=== PATIENT | female | born 1980 | race Caucasian/White ===

== ENCOUNTER 2016-08-02 17:33 | Emergency (ER) | payer OTHER ==
[2016-08-02 18:40] VITALS: BP 123/76
--- NOTE | 2016-08-02 19:22 | UC ---
Throat Pain/Nasal Alvaro HPI - HPI Summary HPI Summary: complaint of nasal congestion and cough that started today ears feel full cough is productive with some yellow phlegm denies fever and chills denies N/V/D has had migraine for the last 2 days with occasional neck pain was taking ibuporofen with relief but ran out of medication and migraine returned being followed by Dr Mcclure has apt for followup in 4 days denies dizziness, photophobia, N/V - History of Current Complaint Chief Complaint: UCGeneralIllness Stated Complaint: FEVER, CHEST CONGESTION Time Seen by Provider: 08/02/16 19:07 Hx Obtained From: Patient Hx Last Menstrual Period: 08/02/16 - Allergies/Home Medications Allergies/Adverse Reactions: Allergies Allergy/AdvReac Type Severity Reaction Status Date / Time Bee Venom Allergy Severe Anaphylatic Verified 08/02/16 18:40 Shock Penicillins Allergy Severe Swelling Verified 08/02/16 18:40 Of Face,Lips,& Throat Aspirin Allergy Intermediate Rash Verified 08/02/16 18:40 Flu Virus Vaccine Allergy Intermediate Hives Verified 08/02/16 18:40 PMH/Surg Hx/FS Hx/Imm Hx Previously Healthy: Yes Endocrine History Of: Denies: Diabetes, Thyroid Disease, Hyperthyroidism, Hypothyroidism, Dyslipidemia Cardiovascular History Of: Denies: Cardiac Disorders, Hypertension, Pacemaker/ICD, Myocardial Infarction , Congestive Heart Failure, Atrial Fibrillation, Deep Vein Thrombosis, Bleeding Disorders Respiratory History Of: Reports: Asthma - Uses albuterol when needed. Denies: COPD, Bronchitis, Pneumonia, Pulmonary Embolism GI/ History Of: Denies: Gastroesophageal Reflux, Ulcer, Gastrointestinal Bleed, Gall Bladder Disease, Kidney Stones, Diverticulitis, Renal Disease, Urosepsis Neurological History Of: Reports: Migraine Denies: TIA, CVA, Dementia, Seizures Psychological History Of: Reports: Depression Denies: Anxiety, Bipolar Disorder, Schizophrenia, Post Traumatic Stress Disorder Cancer History Of: Reports: Cervical Cancer - She is seeing MOTOR ANALYST Denies: Lung Cancer, Colorectal Cancer, Breast Cancer, Prostate Cancer Other History Of: Negative For: HIV, Hepatitis B, Hepatitis C, Anticoagulant Therapy - Surgical History Surgical History: Yes Surgery Procedure, Year, and Place: tubal. C-SECT - Family History Known Family History: Positive: None, Cardiac Disease, Hypertension, Diabetes Negative: Renal Disease Family History: NON CONTRIBUTORY - Social History Lives: With Family Alcohol Use: None Substance Use Type: None Smoking Status (MU): Former Smoker Type: Cigarettes Amount Used/How Often: 4-5 cigs per day Have You Smoked in the Last Year: Yes When Did the Patient Quit Smoking/Using Tobacco: 3 months Household Exposure Type: Cigarettes - Immunization History Most Recent Influenza Vaccination: none Hx Tetanus, Diphtheria Vaccination: Yes Vaccination Up to Date: Yes Review of Systems Constitutional: Negative Skin: Negative Eyes: Negative ENT: Ear Ache, Nasal Discharge Respiratory: Cough Cardiovascular: Negative Gastrointestinal: Negative Genitourinary: Negative Motor: Negative Neurovascular: Negative Musculoskeletal: Negative Neurological: Negative Psychological: Negative All Other Systems Reviewed And Are Negative: Yes Physical Exam Triage Information Reviewed: Yes Appearance: No Pain Distress, Well-Nourished, Obese Vital Signs: Initial Vital Signs Temp 98.1 F 08/02/16 18:36 Pulse 94 08/02/16 18:36 Resp 17 08/02/16 18:36 BP 123/76 08/02/16 18:36 Pulse Ox 100 08/02/16 18:36 Vital Signs Reviewed: Yes Eyes: Positive: Conjunctiva Clear ENT: Positive: Pharynx normal, Nasal congestion, TMs normal, Other: - PERRL Neck: Positive: Supple, Nontender, No Lymphadenopathy. Negative: Nuchal Rigidity Respiratory: Positive: Lungs clear, Normal breath sounds, No respiratory distress Cardiovascular: Positive: RRR, No Murmur, Pulses Normal Abdomen Description: Positive: Nontender, Soft Bowel Sounds: Positive: Present Musculoskeletal: Positive: No Edema Neurological: Positive: Alert Psychological Exam: Normal Skin Exam: Normal Throat Pain/Nasal Course/Dx - Differential Dx/Diagnosis Differential Diagnosis/HQI/PQRI: Otitis Media, Pharyngitis, Sinusitis, URI Provider Diagnoses: URI, migraine Discharge - Discharge Plan Condition: Stable Disposition: HOME Prescriptions: Benzonatate CAP* [Tessalon CAP*] 100 mg PO TID PRN #30 cap PRN Reason: Cough Ibuprofen TAB* [Motrin TAB* 800 MG] 800 mg PO TID #30 tab Patient Education Materials: Migraine Headache (ED), Upper Respiratory Infection (ED) Referrals: Frida De Santiago MD [Primary Care Provider] - Additional Instructions: Increase fluids and rest Take acetaminophen or ibuprofen for fever and headache Please review your discharge instructions. keep appt with primary care provider for further evaluation of your migraine If your symptoms do not improve please call your primary care provider or return to urgent care
== END 2016-08-02 19:40 | disposition home or self-care (01) ==
LOC: UCCORT 17:33
DX: J06.9 Acute upper respiratory infection, unspecified (principal); G43.909 Migraine, unspecified, not intractable, without status migrainosus; J45.909 Unspecified asthma, uncomplicated; C53.9 Malignant neoplasm of cervix uteri, unspecified; E66.9 Obesity, unspecified; Z87.891 Personal history of nicotine dependence; Z88.0 Allergy status to penicillin; Z88.6 Allergy status to analgesic agent; Z88.8 Allergy status to other drugs, medicaments and biological substances
CPT/HCPCS: 99212; G0463

== ENCOUNTER 2017-03-26 20:59 | Emergency (ER) | payer OTHER ==
[2017-03-26 21:11] VITALS: BP 125/74
--- NOTE | 2017-03-26 21:33 | UC ---
HPI Wound/Suture Re-check - HPI Summary HPI Summary: wound check s/p gallbladder surgery 5 days ago concern about one of the incisions + pain , mild redness , no discharge no n/v/d/c no fever, no chills , no abdominal pain - History Of Current Complaint Chief Complaint: UCSkin Stated Complaint: POST OP SKIN COMPLAINT Time Seen by Provider: 03/26/17 21:01 Hx Obtained From: Patient Hx Last Menstrual Period: 03/09/17 Onset/Duration: Gradual Onset, Lasting Days - 5, Still Present Severity: Mild - Allergies/Home Medications Allergies/Adverse Reactions: Allergies Allergy/AdvReac Type Severity Reaction Status Date / Time Bee Venom Allergy Severe Anaphylatic Verified 03/26/17 21:11 Shock Penicillins Allergy Severe Swelling Verified 03/26/17 21:11 Of Face,Lips,& Throat Aspirin Allergy Intermediate Rash Verified 03/26/17 21:11 Home Medications: Home Medications oxyCODONE TAB* [Roxycodone TAB 5 mg*] 10 mg PO Q4H PRN 03/26/17 [History Confirmed 03/26/17] PMH/Surg Hx/FS Hx/Imm Hx GI/ History: Gall Bladder Disease Other History Of: Negative For: HIV, Hepatitis B, Hepatitis C, Anticoagulant Therapy - Surgical History Surgical History: Yes Surgery Procedure, Year, and Place: tubal. C-SECT. gallbladder removal 03/2017 - Family History Known Family History: Positive: None, Cardiac Disease, Hypertension, Diabetes Negative: Renal Disease Family History: NON CONTRIBUTORY - Social History Alcohol Use: None Substance Use Type: None Smoking Status (MU): Former Smoker Type: Cigarettes Amount Used/How Often: 4-5 cigs per day Have You Smoked in the Last Year: Yes When Did the Patient Quit Smoking/Using Tobacco: 3 months Household Exposure Type: Cigarettes - Immunization History Most Recent Influenza Vaccination: none Hx Tetanus, Diphtheria Vaccination: Yes Vaccination Up to Date: Yes Review of Systems Constitutional: Negative Skin: Negative Eyes: Negative ENT: Negative Respiratory: Negative Cardiovascular: Negative Is Patient Immunocompromised?: No All Other Systems Reviewed And Are Negative: Yes Physical Exam Triage Information Reviewed: Yes Appearance: Well-Appearing, Well-Nourished, Obese Vital Signs: Initial Vital Signs Temp 97.9 F 03/26/17 21:05 Pulse 91 03/26/17 21:05 Resp 16 03/26/17 21:05 BP 125/74 03/26/17 21:05 Pulse Ox 100 03/26/17 21:05 Vital Signs Reviewed: Yes Eyes: Positive: Conjunctiva Clear ENT: Positive: Normal ENT inspection, Hearing grossly normal, Pharynx normal Dental Exam: Normal Neck exam: Normal Neck: Positive: Supple, Nontender, No Lymphadenopathy Respiratory: Positive: Chest non-tender, Lungs clear, Normal breath sounds Cardiovascular: Positive: RRR, No Murmur, Pulses Normal Abdominal Exam: Normal Abdomen Description: Positive: Soft, Other: - multiple surgical incisions , no erythema, no swelling, no discharge, no tenderness. Negative: CVA Tenderness (R ), CVA Tenderness (L), Distended, Guarding Bowel Sounds: Positive: Present Course/Dx - Differential Dx - Laceration/Wound Provider Diagnoses: wound check Discharge - Discharge Plan Condition: Stable Disposition: HOME Patient Education Materials: Acute Wound Care (ED) Referrals: Frida De Santiago MD [Primary Care Provider] - If Needed
== END 2017-03-26 21:38 | disposition home or self-care (01) ==
LOC: UCCORT 20:59
DX: Z09 Encounter for follow-up examination after completed treatment for conditions other than malignant neoplasm (principal); Z90.49 Acquired absence of other specified parts of digestive tract; E66.9 Obesity, unspecified; Z88.0 Allergy status to penicillin; Z88.6 Allergy status to analgesic agent; Z91.030 Bee allergy status; Z87.891 Personal history of nicotine dependence
CPT/HCPCS: 99211; G0463

== ENCOUNTER 2017-07-22 18:44 | Emergency (ER) | payer OTHER ==
[2017-07-22] MEDS ORDERED: Clindamycin CAP* 150 MG PO ONE (22:06)
[2017-07-22] MEDS ORDERED: Acetaminophen TAB* 325 MG PO ONE (22:07)
[2017-07-22] MEDS ORDERED: Lidocaine 2% VISCOUS* 15 ML UDC SWISH SPIT ONE (22:08)
[2017-07-22] MEDS ORDERED: predniSONE TAB* 20 MG PO ONE ×2 (22:08→22:18)
--- NOTE | 2017-07-22 22:34 | UC ---
[facility] Dental HPI - HPI Summary HPI Summary: 37 y/o female presents to the urgent care c/o RT ear pain and RT lower jaw pain with swelling since this morning. Pt reports she has a fracture molars in the RT upper and lower jaw. Pain is sharp, constant 8/10 with mild fever and MENDOZA. Pt has taken Ibuprofen adn tylenol Po to alleviate pain. Last dose of ibuprofen at 1700pm. Pt denies cough, sOB, trimus, chest pain, N/V/d, abdominal pain - History of Current Complaint Chief Complaint: UCEar Stated Complaint: RIGHT EAR PAIN/LUMP IN JAW Time Seen by Provider: 07/22/17 21:55 Hx Obtained From: Patient Hx Last Menstrual Period: 06/16/17 Onset/Duration: Sudden Onset, Lasting Hours - this morning, Still Present Severity: Severe Pain Intensity: 8 Pain Scale Used: 0-10 Numeric Aggravating Factor(s): Chewing Alleviating Factor(s): OTC Meds - Allergies/Home Medications Allergies/Adverse Reactions: Allergies Allergy/AdvReac Type Severity Reaction Status Date / Time Bee Venom Allergy Severe Anaphylatic Verified 07/22/17 20:19 Shock Penicillins Allergy Severe Swelling Verified 07/22/17 20:19 Of Face,Lips,& Throat Aspirin Allergy Intermediate Rash Verified 07/22/17 20:19 Home Medications: Home Medications Prazosin HCl [Minipress] 2 mg PO BEDTIME 07/22/17 [History Confirmed 07/22/17] Venlafaxine HCl [Venlafaxine HCl ER] 37.5 mg PO DAILY 07/22/17 [History Confirmed 07/22/17] hydrOXYzine HCL TAB* [Atarax 25 MG TAB*] 25 mg PO BID PRN 07/22/17 [History Confirmed 07/22/17] PMH/Surg Hx/FS Hx/Imm Hx Previously Healthy: Yes Cancer History: Cervical Cancer Other History Of: Negative For: HIV, Hepatitis B, Hepatitis C, Anticoagulant Therapy - Surgical History Surgical History: Yes Surgery Procedure, Year, and Place: tubal. C-SECT X 1. gallbladder removal 2016. NOVPERFECTO. LEEP - Family History Known Family History: Positive: Cardiac Disease, Hypertension, Diabetes Negative: Renal Disease - Social History Occupation: Employed Full-time Lives: With Family Alcohol Use: Rare Substance Use Type: None Smoking Status (MU): Former Smoker Type: Cigarettes Amount Used/How Often: 4-5 cigs per day Have You Smoked in the Last Year: Yes When Did the Patient Quit Smoking/Using Tobacco: 3 months Household Exposure Type: Cigarettes - Immunization History Most Recent Influenza Vaccination: none Hx Tetanus, Diphtheria Vaccination: Yes Vaccination Up to Date: Yes Review of Systems Constitutional: Fever Skin: Negative Eyes: Negative ENT: Dental Pain, Ear Ache - RT ear pain Respiratory: Negative Cardiovascular: Negative Gastrointestinal: Negative Genitourinary: Negative Motor: Negative Neurovascular: Negative Musculoskeletal: Negative Neurological: Headache Psychological: Negative Is Patient Immunocompromised?: No All Other Systems Reviewed And Are Negative: Yes Physical Exam Triage Information Reviewed: Yes Vital Signs: Initial Vital Signs Temp 100.2 F 07/22/17 20:10 Pulse 100 07/22/17 20:10 Resp 16 07/22/17 20:10 BP 142/90 07/22/17 20:10 Pulse Ox 100 07/22/17 20:10 - Additional Comments Vitals: reviewed General: Well-Appearing, moderate Pain Distress, Well-Nourished female Vital Signs Reviewed: Yes Eyes: Positive: Conjunctiva Clear - PERRLA, EOMI, ENT: Positive: Normal ENT inspection, Hearing grossly normal, Pharynx normal, TMs normal - B/L external ear canals clear,. Negative: Tonsillar swelling, Tonsillar exudate, Trismus Dental: Positive: Gross Decay/Caries @ - molars #3 and 30, Abscess @ molar #3- gingival swelling and erythema, tender to percussion. involves tissue surrounding the molar#3., Cervical Lymphadenopathy - anterior- broken, or decayed teeth, gingival swelling and erythema, tender to percussion. Periodontal: involves tissue surrounding the teeth. Neck: Positive: Supple Respiratory: Positive: Chest non-tender, Lungs clear, Normal breath sounds, No respiratory distress Cardiovascular: Positive: RRR, No Murmur, Pulses Normal, Brisk Capillary Refill Abdomen Description: Positive: Nontender, No Organomegaly, Soft. Negative: CVA Tenderness (R), CVA Tenderness (L) Bowel Sounds: Positive: Present Musculoskeletal: Positive: Strength Intact, ROM Intact, No Edema Neurological Exam: Normal Psychological Exam: Normal Skin Exam: Normal Dental Complaint Course/Dx - Course Course Of Treatment: 37 y/o female presents to the urgent care c/o RT ear pain and RT lower jaw pain with swelling since this morning. Pt reports she has a fracture molars in the RT upper and lower jaw. Pain is sharp, constant 8/10 with mild fever and MENDOZA. Pt has taken Ibuprofen adn tylenol Po to alleviate pain. Last dose of ibuprofen at 1700pm. Pt denies cough, SOB, trimus, chest pain , N/V/D, abdominal pain. Hx obtained. Pt is febrile with dental abscess around molar #3 in the upper jaw on examination, no trismus or TMJ tenderness. Pt decline Toradol inj. Pt PCN alelrgic. Pt given viscous Lidocaine, Tylenol PO, Clindamycin loading dose at the clinic to alleviate symptoms. Pt dispense to take home first dose of prednisone to decrease swelling. Pt Rx Prednisone taper dose, Clindamycin PO and tylenol PO.Pt's BP is elevated today advised to decrease salt in diet, monitor BP and f/u with PCP for further management. Pt strongly advised to f/u with her Dentist as soon as possible further evaluation and treatment. Pt understood and agreed with plan of care. Left the clinic ambulating. - Differential Dx/Diagnosis Differential Diagnosis/Dx: Dental Abscess, Dental Caries, Fractured Tooth, Peridontic Disease, Peritonsillar Abcess, Pharyngitis, Tonsillitis Provider Diagnoses: 1- Dental abscess. 2-Multiple fractured molars. 3- elevated BP w/o Hx of HTN Discharge - Discharge Plan Condition: Stable Disposition: HOME Prescriptions: Acetaminophen TAB* [Tylenol TAB*] 650 mg PO Q6H PRN #30 tab PRN Reason: Pain Clindamycin Cap(NF) [Clindamycin Cap 300 mg Cap(NF)] 300 mg PO Q6H #28 cap predniSONE TAB* [Deltasone TAB*] 20 mg PO DAILY #8 tab Patient Education Materials: Dental Abscess (ED), Low Sodium Diet (ED), Toothache (ED) Referrals: Frida De Santiago MD [Primary Care Provider] - 2 Days Additional Instructions: 1-Please take full course of antibiotic to avoid resistance. 2- Take Tylenol q4-6hrs as instructed after meals to alleviate pain and swelling. 3- Take Prednisone PO as directed for swelling. Take 60mgPO tonight and the rest starting tomorrow 4- F/u with your Dentist or Dental List provided as soon as possible for further treatment. 5- If symptoms do not improve or worsen please return to the urgent care or f/u with your PCP for further evaluation and treatment 6- Your BP is elevated today. please decrease salt in your diet, monitor BP and if it continues to be elevated please f/u with your PCP for further management
[2017-07-22 22:37] VITALS: BP 143/98
== END 2017-07-22 22:41 | disposition home or self-care (01) ==
LOC: UCCORT 18:44
DX: K04.7 Periapical abscess without sinus (principal); S02.5XXA Fracture of tooth (traumatic), initial encounter for closed fracture; X58.XXXA Exposure to other specified factors, initial encounter; Y93.9 Activity, unspecified; Y92.9 Unspecified place or not applicable; R03.0 Elevated blood-pressure reading, without diagnosis of hypertension; Z87.891 Personal history of nicotine dependence
CPT/HCPCS: 99213; A9270-GY; G0463; J7512

== ENCOUNTER 2018-01-30 21:00 | Emergency (ER) | payer OTHER ==
[2018-01-30 21:22] VITALS: BP 121/77
[2018-01-30] MEDS ORDERED: Cyclobenzaprine TAB* 10 MG PO ONE (21:33)
--- NOTE | 2018-01-30 21:33 | UC ---
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 She has had no injury - History of Current Complaint Chief Complaint: UCBackPain Stated Complaint: BACK/HIP PAIN Time Seen by Provider: 01/30/18 21:14 Hx Obtained From: Patient Hx Last Menstrual Period: pt states no menses since having leep procedure 06/23 ?: No Onset/Duration: Gradual Onset, Lasting Days - 7, Still Present Timing: Constant Pain Intensity: 8 Pain Scale Used: 0-10 Numeric Back Pain: Is Discrete @ - right lower back radiating in to hip Character: Aching, Spasmodic, Stiffness Aggravating Factor(s): Movement Alleviating Factor(s): Position Associated Signs And Symptoms: Positive: Negative - Allergies/Home Medications Allergies/Adverse Reactions: Allergies Allergy/AdvReac Type Severity Reaction Status Date / Time MS Bee Venom [Bee Venom] Allergy Severe Anaphylatic Verified 01/30/18 21:22 Shock MS Penicillins [Penicillins] Allergy Severe Swelling Verified 01/30/18 21:22 Of Face,Lips,& Throat MS Aspirin [Aspirin] Allergy Intermediate Rash Verified 01/30/18 21:22 Home Medications: Home Medications Ibuprofen TAB* [Advil TAB*] 800 mg PO Q6H PRN 01/30/18 [History Confirmed ] PMH/Surg Hx/FS Hx/Imm Hx Previously Healthy: No Psychological History: Anxiety Other History Of: Negative For: HIV, Hepatitis B, Hepatitis C, Anticoagulant Therapy - Surgical History Surgical History: Yes Surgery Procedure, Year, and Place: tubal. C-SECT X 1. gallbladder removal 2016. NOVASURE. LEEP - Family History Known Family History: Positive: None, Cardiac Disease, Hypertension, Diabetes Negative: Renal Disease Family History: NON CONTRIBUTORY - Social History Occupation: Student Lives: With Family Alcohol Use: Rare Substance Use Type: None Smoking Status (MU): Former Smoker Type: Cigarettes Amount Used/How Often: 4-5 cigs per day Have You Smoked in the Last Year: Yes When Did the Patient Quit Smoking/Using Tobacco: 2015 Household Exposure Type: Cigarettes - Immunization History Most Recent Influenza Vaccination: none Hx Tetanus, Diphtheria Vaccination: Yes Vaccination Up to Date: Yes Review of Systems Constitutional: Negative Skin: Negative Eyes: Negative ENT: Negative Respiratory: Negative Cardiovascular: Negative Gastrointestinal: Negative Genitourinary: Negative Motor: Negative Neurovascular: Negative Musculoskeletal: Arthralgia - right low back and hip Neurological: Negative Psychological: Negative Is Patient Immunocompromised?: No All Other Systems Reviewed And Are Negative: Yes Physical Exam Triage Information Reviewed: Yes Appearance: Well-Appearing, Pain Distress - mild, Obese Vital Signs: Initial Vital Signs Temp 98 F 01/30/18 21:14 Pulse 93 01/30/18 21:14 Resp 16 01/30/18 21:14 BP 121/77 01/30/18 21:14 Pulse Ox 99 01/30/18 21:14 Vital Signs Reviewed: Yes Eye Exam: Normal Eyes: Positive: Conjunctiva Clear ENT Exam: Normal ENT: Positive: Normal ENT inspection, Hearing grossly normal. Negative: Trismus , Muffled voice, Hoarse voice Dental Exam: Normal Neck exam: Normal Neck: Positive: Supple, Nontender Respiratory Exam: Normal Respiratory: Positive: Chest non-tender, No respiratory distress, No accessory muscle use Cardiovascular Exam: Normal Cardiovascular: Positive: RRR, Pulses Normal, Brisk Capillary Refill Abdominal Exam: Normal Abdomen Description: Negative: CVA Tenderness (R), CVA Tenderness (L) Musculoskeletal Exam: Normal Musculoskeletal: Positive: Strength Intact, ROM Intact, No Edema Neurological Exam: Normal Neurological: Positive: Alert, Muscle Tone Normal Psychological Exam: Normal Skin Exam: Normal Back Pain Course/Dx - Course Course Of Treatment: continue Ibuprofen, add flexeril, referral to pcp follow with pcp prn - Differential Dx/Diagnosis Provider Diagnoses: right low back and hip pain Discharge - Sign-Out/Discharge Documenting (check all that apply): Patient Departure - Discharge Plan Condition: Stable Disposition: HOME Prescriptions: Cyclobenzaprine TAB* [Flexeril 10 MG TAB*] 10 mg PO TID PRN #20 tab PRN Reason: muscle pain/right hip and back Patient Education Materials: Musculoskeletal Pain (ED), Core Strengthening Exercises (ED) Referrals: Frida De Santiago MD [Primary Care Provider] - 2 Weeks - Billing Disposition and Condition Condition: STABLE Disposition: Home
== END 2018-01-30 21:51 | disposition home or self-care (01) ==
LOC: UCCORT 21:00
DX: M54.5 Low back pain (principal); M25.551 Pain in right hip; Z91.030 Bee allergy status; Z88.0 Allergy status to penicillin; Z88.6 Allergy status to analgesic agent; Z87.891 Personal history of nicotine dependence
CPT/HCPCS: 99212; A9270-GY; G0463

== ENCOUNTER 2019-06-06 16:33 | Emergency (ER) | payer OTHER ==
[2019-06-06 16:52] VITALS: BP 125/86
--- NOTE | 2019-06-06 16:58 | UC ---
Respiratory Complaint HPI - HPI Summary HPI Summary: 38 y/o female presents to the urgent care c/o sinus congestion, yellowish/green nasal discharge w/ PND for the past 2 weeks. Intermittent dry cough for the past 5 days. Now symptoms have worsen w/ sinus pain, MENDOZA and left ear pain and sore throat for the past 2 days. Pain is 7/10. She has been taken Robitussin PO and other OTC medications w/o any improvement. Pt denies fever, dizziness, SOB, chest pain, abdominal pain, N/V/d. - History of Current Complaint Chief Complaint: UCGeneralIllness Stated Complaint: CHEST CONGESTION, EAR PAIN Time Seen by Provider: 06/06/19 16:56 Hx Obtained From: Patient Hx Last Menstrual Period: 2016 Onset/Duration: Gradual Onset, Lasting Weeks - 2 weeks, Still Present, Worse Since - 2 days ago Timing: Constant Severity Initially: Mild Severity Currently: Moderate Pain Intensity: 7 Pain Scale Used: 0-10 Numeric Character: Cough: Nonproductive Aggravating Factors: Recumbent Position Alleviating Factors: OTC Meds Associated Signs And Symptoms: Positive: URI, Nasal Congestion, Sinus Discomfort. Negative: Fever, Wheezing - Risk Factors Pulmonary Embolism Risk Factors: Negative Cardiac Risk Factors: Negative Pseudomonas Risk Factors: Negative Tuberculosis Risk Factors: Negative - Allergies/Home Medications Allergies/Adverse Reactions: Allergies Allergy/AdvReac Type Severity Reaction Status Date / Time aspirin Allergy Rash Verified 06/06/19 16:45 bee venom protein (honey bee) Allergy Anaphylatic Verified 06/06/19 16:45 Shock Penicillins Allergy Anaphylatic Verified 06/06/19 16:45 Shock Home Medications: Home Medications Cholecalciferol TAB* [Vitamin D TAB*] 1 tab PO DAILY 06/06/19 [History Confirmed 06/06/19] PMH/Surg Hx/FS Hx/Imm Hx Previously Healthy: Yes Other GI/ History: gastroperesis Cancer History: Cervical Cancer Other Cancer History: uterine cancer Other History Of: Negative For: HIV, Hepatitis B, Hepatitis C, Anticoagulant Therapy - Surgical History Surgical History: Yes Surgery Procedure, Year, and Place: tubal. C-SECT X 1. gallbladder removal 2016. NOVPERFECTO. LEEP. hysterectomy - Family History Known Family History: Positive: Cardiac Disease, Hypertension, Diabetes Negative: Renal Disease Family History: breast cancer, lung cancer - Social History Occupation: Employed Full-time Lives: With Family Alcohol Use: Rare Substance Use Type: None Smoking Status (MU): Former Smoker Type: Cigarettes Amount Used/How Often: 4-5 cigs per day Have You Smoked in the Last Year: Yes When Did the Patient Quit Smoking/Using Tobacco: 2016 Household Exposure Type: Cigarettes - Immunization History Most Recent Influenza Vaccination: none Hx Tetanus, Diphtheria Vaccination: Yes Vaccination Up to Date: Yes Review of Systems All Other Systems Reviewed And Are Negative: Yes Constitutional: Positive: Negative Skin: Positive: Negative Eyes: Positive: Negative ENT: Positive: Sore Throat, Ear Ache - left ear pain, Nasal Discharge - yellowish, Sinus Congestion, Sinus Pain/Tenderness, Other - yellowish PND Respiratory: Positive: Cough - dry Cardiovascular: Positive: Negative Gastrointestinal: Positive: Negative Genitourinary: Positive: Negative Motor: Positive: Negative Neurovascular: Positive: Negative Musculoskeletal: Positive: Negative Neurological: Positive: Headache Psychological: Positive: Negative Is Patient Immunocompromised?: No Physical Exam - Summary Physical Exam Summary: Vitals: reviewed General: Well developed, well-nourished female patient with NAD. Head and face: Normocephalic and atraumatic, Positive tenderness over the frontal and maxillary sinuses.. Eyes: PERRLA, EOMI x 2. Normal conjunctiva. No eye discharge. ENT:B/L external ear canals clears, RT TM WNL, LF TM injected w/ erythema and yellowish draiange. no perforation. Nose: edematous and erythematous nasal mucosa with with yellowish discharge and erythematous mucosa. Pharynx with erythema, no exudate. Yellowish PND Neck: Supple, no JVD, no carotid bruits and no lymphadenopathy. Lungs: clear, no rales, no rhonchi, no wheezes. CVS: RRR, S1 and S2 present no murmurs or gallops appreciated. Abdomen: soft nontender with positive bowel sounds. Extremities: no edema noted. Neuro: WNL. Skin: warm and dry Triage Information Reviewed: Yes Vital Signs: Initial Vital Signs Temp 97.1 F 06/06/19 16:47 Pulse 104 06/06/19 16:47 Resp 14 06/06/19 16:47 BP 125/86 06/06/19 16:47 Pulse Ox 99 06/06/19 16:47 Respiratory Course/Dx - Course Course Of Treatment: 38 y/o female presents to the urgent care c/o sinus congestion, yellowish/green nasal discharge w/ PND for the past 2 weeks. Intermittent dry cough for the past 5 days. Now symptoms have worsen w/ sinus pain, MENDOZA and left ear pain and sore throat for the past 2 days. Pain is 7/10. She has been taken Robitussin PO and other OTC medications w/o any improvement. Pt denies fever, dizziness, SOB, chest pain, abdominal pain, N/V/d. Hx obtained. Pt w/ acute bacterial sinusitis, pharyngitis and left otitis media on examination. Pt with 2 weeks of symptoms getting worse. Pt Rx Amoxicillin PO and flonase nasal spray. Tessalon PO for cough. Discharge instructions explained to Pt. Advised to Return to the clinic or PCP if symptoms do not improve.Pt understood and agreed with plan of care. - Differential Dx/Diagnosis Differential Diagnosis/HQI/PQRI: Asthma, Bronchitis, Influenza, Sinusitis, Other - pneumonia Provider Diagnosis: Acute bacterial sinusitis, Left otitis media, Pharyngitis Discharge ED - Sign-Out/Discharge Documenting (check all that apply): Patient Departure - D/C home All imaging exams completed and their final reports reviewed: No Studies - Discharge Plan Condition: Stable Disposition: HOME Prescriptions: Amoxicillin PO (*) [Amoxicillin 875 MG (*)] 875 mg PO BID #20 tab Benzonatate CAP* [Tessalon 100 MG CAP*] 100 mg PO TID PRN #21 cap PRN Reason: Cough Fluticasone NASAL SPRAY 50MCG* [Flonase NASAL SPRAY 50MCG*] 2 spray BOTH NARES DAILY #1 btl Patient Education Materials: Sinusitis (ED), Ear Infection (ED) Referrals: Zunilda Knowles INTELLIGENCE DIRECTOR [Primary Care Provider] - 3 Days Additional Instructions: 1- Please increase fluid intake and rest. take full course of antibiotics to avoid resistance. Take yogurts w/ probiotics or Culturelle to protect your GI system 2-Use Flonase as directed to help drain fluid. Also buy saline drops to clear sinuses 3-Please take Tessalon Tabs PO to alleviates cough. 4- Alos take Ibuprofen PO q6-8hr prn after meals to alleviate otalgia and sore throat 4-Please f/u w/ your PCP in 3 days if symptoms do not improve for further management and treatment - Billing Disposition and Condition Condition: STABLE Disposition: Home
== END 2019-06-06 17:41 | disposition home or self-care (01) ==
LOC: UCCORT 16:33
DX: J01.90 Acute sinusitis, unspecified (principal); B96.89 Other specified bacterial agents as the cause of diseases classified elsewhere; H66.92 Otitis media, unspecified, left ear; J02.9 Acute pharyngitis, unspecified; K31.84 Gastroparesis; Z88.6 Allergy status to analgesic agent; Z91.030 Bee allergy status; Z88.0 Allergy status to penicillin; Z85.42 Personal history of malignant neoplasm of other parts of uterus; Z87.891 Personal history of nicotine dependence
CPT/HCPCS: 99212; G0463